=== PATIENT | male | born 1990 | race Caucasian/White ===

== ENCOUNTER → 2016-08-20 | Outpatient (CLI) | payer OTHER | LOC: LAB 10:12 | DX: R10.13 Epigastric pain (principal) ==

== ENCOUNTER 2018-12-31 17:39 | Emergency (ER) | payer BC ==
[2018-12-31 18:51] LABS: URINE APPEARANCE CLEAR; URINE BILIRUBIN NEGATIVE (NEGATIVE); URINE BLOOD 250 ery/uL (NEGATIVE); URINE COLOR YELLOW; URINE GLUCOSE NEGATIVE (NEGATIVE); URINE KETONE 1+ (NEGATIVE); URINE LEUKOCYTE ESTERASE NEGATIVE (NEGATIVE); URINE MUCUS PRESENT (NOT PRESENT); URINE NITRATE NEGATIVE (NEGATIVE); URINE PROTEIN(semi-quant) TRACE mg/dL (NEGATIVE); URINE UROBILINOGEN NORMAL (NORMAL)
[2018-12-31 21:02] LABS: BASO # 0.1 (0.02-0.10); EOS # 0.2 (0.04-0.40); EOS % 0.8 % (0.0-4.0); HEMATOCRIT 45.9 % (42.0-52.0); HEMOGLOBIN 15.6 g/dL (13.5-18.0); LYMPH# 2.7 (1.50-4.00); MEAN CELL VOLUME 81 fl (78-100); MEAN CORPUSCULAR HEMOGLOBIN 28 pg (27-31); MEAN CORPUSCULAR HGB CONC 34 g/dL (33-37); MEAN PLATELET VOLUME 10.6 fl (7.4-10.4); MONO # 1.2 (0.20-0.80); PLATELET COUNT 299 K/mm3 (130-400); RED BLOOD COUNT 5.68 M/mm3 (4.20-5.60); RED CELL DISTRIBUTION WIDTH 14.1 % (11.5-14.5); WHITE BLOOD COUNT 18.2 K/mm3 (4.8-10.8)
[2018-12-31 21:13] LABS: POTASSIUM 3.8 mmol/L (3.5-5.1)
[2018-12-31 21:14] LABS: CALCIUM 9.7 mg/dL (8.3-10.5)
[2018-12-31] MEDS ORDERED: PERCOCET 325 MG1 TA2 PO (22:55)
[2018-12-31] MEDS ORDERED: FLOMAX0.4 MG PO (22:55)
[2018-12-31] MEDS ORDERED: ZOFRAN ODT4 MG PO (22:55)
[2018-12-31] MEDS ORDERED: SEPTRA DS 8001 TAB PO (22:55)
[2018-12-31 23:05] VITALS: BP 153/98
[2018-12-31 23:39] LABS: ALBUMIN 4.5 g/dL (3.5-5.0)
[2018-12-31 23:42] LABS: TOTAL PROTEIN 7.9 g/dL (6.4-8.3)
[2018-12-31 23:44] LABS: TOTAL BILIRUBIN 0.4 mg/dL (0.2-1.2)
== END 2018-12-31 23:05 | disposition home or self-care (01) ==
LOC: ED 17:39
PROVIDERS: Family Medicine
DX: N23 Unspecified renal colic (principal)
CPT/HCPCS: J1885; J3010; J7030

== ENCOUNTER → 2019-01-04 | Outpatient (CLI) | payer BC ==
[2018-12-31 23:05] VITALS: BP 153/98
[~2019-01-04] MED LIST: FLOMAX0.4 MG PO; PERCOCET 325 MG1 TA2 PO; SEPTRA DS 8001 TAB PO; ZOFRAN ODT4 MG PO
== END ==
LOC: LAB 09:29
DX: N20.0 Calculus of kidney (principal)

== ENCOUNTER → 2019-10-23 | Outpatient (CLI) | payer BC | LOC: RAD 16:34 → LAB 16:34 | DX: M40.40 Postural lordosis, site unspecified (principal); M79.602 Pain in left arm; R20.0 Anesthesia of skin ==